=== PATIENT | female | born 1930 | race Caucasian/White ===

== ENCOUNTER → 2019-12-17 | Outpatient (CLI) | payer MEDICARE, BC ==
[~2019-12-17] MED LIST: IODINE/POTASS IOD (LUGOLS) BOTTLE TOPICAL ONE
--- NOTE | 2019-12-17 15:55 | NM ---
EXAMINATION TYPE: NM DatScan Brain SPECT DATE OF EXAM: 12/17/2019 COMPARISON: NONE HISTORY: Tremors TECHNIQUE: 10 drops of Lugol's solution was administered 1 hour prior to injection as a thyroid bloc charly agent. After the administration of 4.54 mCi I-123 Ioflupane DaTscan. Images obtained 3 hours p ost injection. SPECT images of the brain were acquired with axial and coronal reconstructions. FINDINGS: The axial SPECT images demonstrate increased background activity and reduced activity withi n the bilateral striata. IMPRESSION: Abnormal appearance highly suggestive of idiopathic Parkinson's disease or Parkinsonian s yndrome.
== END | disposition home or self-care (01) ==
LOC: RADNMMAIN 10:53
PROVIDERS: ATTEND Psychiatry & Neurology Neurology
DX: R94.8 Abnormal results of function studies of other organs and systems (principal)
CPT/HCPCS: 78803; A9584